=== PATIENT | male | born 1980 | race African-American/Black ===

== ENCOUNTER 2022-11-15 22:30 | Inpatient (IN) | payer MEDICAID ==
[~2022-11-15] VITALS: Ht 172.7 cm; Wt 73.1 kg
[2022-11-15] MEDS ORDERED: CALCIUM GLUCONATE 1,000 MG in DEXT 5% WATER 100 ML IV ONE (22:45)
[2022-11-15] MEDS ORDERED: CALCIUM GLUCONATE 1GM PREMIX 50 ML IV NR (23:00)
[2022-11-15 23:30] LABS: BASOPHILS % 0.5 % (0.0-2.0); DIFFERENTIAL COMMENT 0; EOSINOPHILS % 1.9 % (0.0-5.0); LYMPHOCYTES % 8.8 % (20.0-50.0); MEAN CORPUSCULAR HEMOGLOBIN 29.3 pg (28.0-32.0); MEAN CORPUSCULAR HGB CONC 31.2 g/dL (31.0-37.0); MEAN CORPUSCULAR VOLUME 94.2 fL (80.0-94.0); MEAN PLATELET VOLUME 7.3 fl (7.4-10.4); MONOCYTES % 6.4 % (2.0-8.0); NEUTROPHILS % 82.4 % (40.0-76.0); PLATELET 129 x1000/uL (130-400); RED BLOOD CELL COUNT 0.81 mill/uL (4.7-6.1); RED CELL DISTRIBUTION WIDTH 17.5 % (11.6-14.6); WHITE BLOOD COUNT 5.2 x1000/uL (4.5-11.0)
[2022-11-15 23:38] LABS: CHLORIDE 129 mEq/L (98-107); INDEX HEMOLYSI 1 (1-3); INDEX ICTERIC 1 (1-4); INDEX LIPEMIC 1 (1-3); POTASSIUM 3.2 mEq/L (3.5-5.1); SODIUM 151 mEq/L (136-145)
[2022-11-15 23:50] LABS: ALANINE AMINOTRANSFERASE < 6 IU/L (13-61); ALBUMIN 1.4 g/dL (3.4-5.0); ASPARTATE AMINOTRANSFERASE 8 IU/L (15-37); BILIRUBIN TOTAL 0.1 mg/dL (0.1-1.0); CARBON DIOXIDE 13 mEq/L (21-32); NT PRO B-TYPE NATRIURETIC PEP 13365 pg/mL (5-125); PROTEIN TOTAL 3.1 g/dL (6.0-8.3); TROPONIN I HIGH SENSITIVITY 25 ng/L (<78); UREA NITROGEN BLOOD 28 mg/dL (7-21)
[2022-11-16] VITALS (23 sets, daily range): BP systolic 162–210; BP diastolic 85–133; PULSE 80–110; RESP 16–36; TEMP 97.3–99.7; O2SAT 99
[2022-11-16 00:03] LABS: HEMATOCRIT. 7.7 % (42.0-52.0); HEMOGLOBIN. 2.4 g/dL (14.0-18.0)
[2022-11-16 00:58] LABS: CALCIUM <5.0 mg/dL mg/dL (8.5-10.1); CREATININE 8.8 mg/dL (0.6-1.3); GLUCOSE 45 mg/dL (70-105)
[2022-11-16] MEDS ORDERED: DEXTROSE 50% WATER 50ML SYRINGE IV ONE ×2 (01:00→02:30)
[2022-11-16 01:05] LABS: HEMATOCRIT 22.1 % (42.0-52.0)
[2022-11-16 01:11] LABS: HEMOGLOBIN 6.8 g/dL (14.0-18.0)
[2022-11-16] MEDS ORDERED: DEXTROSE 50% WATER 50ML SYRINGE IV NR ×2 (01:30→03:30)
[2022-11-16 01:40] LABS: INR 0.9
[2022-11-16 01:44] LABS: CHLORIDE 98 mEq/L (98-107); INDEX HEMOLYSI 1 (1-3); INDEX ICTERIC 1 (1-4); INDEX LIPEMIC 1 (1-3); SODIUM 135 mEq/L (136-145)
[2022-11-16 01:56] LABS: ALANINE AMINOTRANSFERASE 12 IU/L (13-61); ALBUMIN 3.8 g/dL (3.4-5.0); ASPARTATE AMINOTRANSFERASE 20 IU/L (15-37); BILIRUBIN TOTAL 0.5 mg/dL (0.1-1.0); CARBON DIOXIDE 25 mEq/L (21-32); GLUCOSE 95 mg/dL (70-105); PROTEIN TOTAL 8.5 g/dL (6.0-8.3); TROPONIN I HIGH SENSITIVITY 52 ng/L (<78); UREA NITROGEN BLOOD 60 mg/dL (7-21)
[2022-11-16 02:01] LABS: CREATININE 19.8 mg/dL (0.6-1.3); POTASSIUM 7.1 mEq/L (3.5-5.1)
[2022-11-16] MEDS ORDERED: ALBUTEROL (0.083%) 2.5MG/3ML NEB HHN SCH (02:30)
[2022-11-16] MEDS ORDERED: INSULIN REGULAR (HUMULIN R) 300UNITS/3ML VIAL IV ONE (02:30)
[2022-11-16] MEDS ORDERED: SODIUM BICARBONATE 8.4% 1 MEQ/ML 50ML SYR IV ONE (02:30)
[2022-11-16] MEDS ORDERED: SODIUM BICARBONATE 8.4% 1 MEQ/ML 50ML SYR IV NR (03:15)
[2022-11-16] MEDS ORDERED: ALBUTEROL (0.083%) 2.5MG/3ML NEB ONE (05:50)
[2022-11-16] MEDS: ALBUTEROL (0.083%) 2.5MG/3ML NEB HHN SCH ×2 (05:52→06:28)
[2022-11-16] MEDS ORDERED: ONDANSETRON HCL 4MG/2ML INJ IV PRN (09:45)
[2022-11-16] MEDS: NIFEDIPINE XL 60MG TAB PO SCH ×2 (10:00→17:03)
[2022-11-16] MEDS ORDERED: PANTOPRAZOLE SODIUM 40 MG/VIAL IV SCH (11:00)
[2022-11-16 15:05] LABS: HEPATITIS B SURFACE ANTIGEN NEGATIVE
[2022-11-16 15:32] LABS: HEPATITIS C VIR.AB 0.11 INDEXVAL (0.00-0.80)
[2022-11-16 15:33] LABS: HEPATITIS B CORE AB IGM NEGATIVE
[2022-11-16 15:34] LABS: HEPATITIS A AB IGM NEGATIVE (NEGATIVE)
[2022-11-16] MEDS ORDERED: HYDRALAZINE HCL 100MG TABLET PO NR (16:00)
[2022-11-16 16:13] LABS: BG BASE EXCESS -1.9 mmol/L (-2.0-2.0); BG CARBOXYHEMOGLOBIN 0.5 % (0.5-1.5); BG HCO3 ACT 22.9 mmol/L (22.0-26.0); BG METHEMOGLOBIN 0.2 % (0.0-1.5); BG OXYHEMOGLOBIN 96.3 % (94.0-97.0); BG PCO2 38.8 mmHg (35.0-45.0); BG PH 7.388 (7.350-7.450); BG PO2 91.3 mmHg (75.0-100.0); BG SAMPLE SITE RIGHT RADIAL; BG TOTAL HEMOGLOBIN 7.9 g/dL (12.0-18.0); BG VENT MODE NASAL CANNULA
[2022-11-16] MEDS: HYDRALAZINE HCL 100MG TABLET PO SCH (20:48)
[2022-11-16] MEDS: ACETAMINOPHEN 325MG TABLET PO PRN (20:50)
[2022-11-16] MEDS ORDERED: EPOETIN ALFA 4000UNITS/ML VIAL SUBCUT NR (21:00)
[2022-11-16] MEDS: IPRATROPIUM/ALBUTEROL 0.5-3(2.5)MG/3ML NEB HHN SCH (21:28)
[2022-11-16] MEDS: PANTOPRAZOLE SODIUM 40 MG/VIAL IV SCH (22:35)
[2022-11-16 22:43] LABS: POTASSIUM 6.3 mEq/L (3.5-5.1)
[2022-11-16 22:44] LABS: FOLIC ACID (FOLATE) SERUM 18.8 ng/mL (>5.38)
[2022-11-16] MEDS ORDERED: SODIUM POLYSTYRENE SULFONATE 15 G/60 ML BOT PO NR (23:30)
[2022-11-17] VITALS (26 sets, daily range): BP systolic 133–189; BP diastolic 75–120; PULSE 92–110; RESP 12–29; TEMP 97.4–99.1; O2SAT 98–99
[2022-11-17] MEDS: IPRATROPIUM/ALBUTEROL 0.5-3(2.5)MG/3ML NEB HHN SCH ×4 (01:06→19:51)
[2022-11-17 01:34] LABS: HEMATOCRIT 21.5 % (42.0-52.0); HEMOGLOBIN 7.2 g/dL (14.0-18.0)
[2022-11-17] MEDS ORDERED: DIPH50CA41 PO (03:53)
[2022-11-17] MEDS ORDERED: CETI10TA11 MT (03:53)
[2022-11-17] MEDS ORDERED: PREG50CA MT (03:53)
[2022-11-17] MEDS ORDERED: FOLI0.8T23 MT (03:53)
[2022-11-17] MEDS ORDERED: MINO10TA MT (03:53)
[2022-11-17] MEDS ORDERED: FURO80TA3 MT (03:53)
[2022-11-17] MEDS ORDERED: HYDR-4135 PO (03:53)
[2022-11-17] MEDS ORDERED: CARV12.545 PO (03:53)
[2022-11-17] MEDS ORDERED: LOSA50TA41 MT (03:53)
[2022-11-17] MEDS: CLONIDINE 0.1MG TABLET PO PRN ×2 (05:36→13:00)
[2022-11-17] MEDS: ACETAMINOPHEN 325MG TABLET PO PRN ×2 (05:36→12:49)
[2022-11-17 06:12] LABS: BASOPHILS % 0.3 % (0.0-2.0); EOSINOPHILS % 0.3 % (0.0-5.0); HEMATOCRIT. 22.3 % (42.0-52.0); HEMOGLOBIN. 7.4 g/dL (14.0-18.0); LYMPHOCYTES % 7.8 % (20.0-50.0); MEAN CORPUSCULAR HEMOGLOBIN 28.8 pg (28.0-32.0); MEAN CORPUSCULAR HGB CONC 33.1 g/dL (31.0-37.0); MEAN CORPUSCULAR VOLUME 87.1 fL (80.0-94.0); MEAN PLATELET VOLUME 8.1 fl (7.4-10.4); MONOCYTES % 7.5 % (2.0-8.0); NEUTROPHILS % 84.1 % (40.0-76.0); PLATELET 269 x1000/uL (130-400); RED BLOOD CELL COUNT 2.56 mill/uL (4.7-6.1); RED CELL DISTRIBUTION WIDTH 18.4 % (11.6-14.6); WHITE BLOOD COUNT 14.9 x1000/uL (4.5-11.0)
[2022-11-17 07:38] LABS: POTASSIUM 5.9 mEq/L (3.5-5.1)
[2022-11-17 07:44] LABS: CALCIUM 9.3 mg/dL (8.5-10.1)
[2022-11-17 07:50] LABS: CREATININE 14.4 mg/dL (0.6-1.3)
[2022-11-17] MEDS: NIFEDIPINE XL 60MG TAB PO SCH ×2 (08:54→20:39)
[2022-11-17] MEDS: HYDRALAZINE HCL 100MG TABLET PO SCH ×2 (08:54→17:46)
[2022-11-17] MEDS: PANTOPRAZOLE SODIUM 40 MG/VIAL IV SCH ×2 (13:00→20:38)
[2022-11-17 13:14] LABS: HEMOGLOBIN 7.2 g/dL (14.0-18.0)
[2022-11-17] MEDS ORDERED: CEFTRIAXONE 1GM PREMIX 50 ML IV SCH (15:45)
[2022-11-17] MEDS: CEFTRIAXONE 1,000 MG in DEXTROSE 5% WATER 50 ML IV SCH (20:38)
[2022-11-18] VITALS (17 sets, daily range): BP systolic 138–172; BP diastolic 82–126; PULSE 98–119; RESP 9–31; TEMP 97.8–98.6; O2SAT 96–100
[2022-11-18] MEDS: HYDRALAZINE HCL 100MG TABLET PO SCH ×3 (01:00→17:49)
[2022-11-18] MEDS: IPRATROPIUM/ALBUTEROL 0.5-3(2.5)MG/3ML NEB HHN SCH ×4 (01:54→21:36)
[2022-11-18] MEDS: CLONIDINE 0.1MG TABLET PO PRN (06:37)
[2022-11-18 06:53] LABS: BASOPHILS % 0.2 % (0.0-2.0); EOSINOPHILS % 1.5 % (0.0-5.0); HEMATOCRIT. 23.3 % (42.0-52.0); HEMOGLOBIN. 7.7 g/dL (14.0-18.0); LYMPHOCYTES % 8.4 % (20.0-50.0); MEAN CORPUSCULAR HEMOGLOBIN 28.2 pg (28.0-32.0); MEAN CORPUSCULAR HGB CONC 33.1 g/dL (31.0-37.0); MEAN CORPUSCULAR VOLUME 85.2 fL (80.0-94.0); MONOCYTES % 7.4 % (2.0-8.0); NEUTROPHILS % 82.5 % (40.0-76.0); PLATELET 273 x1000/uL (130-400); RED BLOOD CELL COUNT 2.74 mill/uL (4.7-6.1); RED CELL DISTRIBUTION WIDTH 16.7 % (11.6-14.6); WHITE BLOOD COUNT 11.7 x1000/uL (4.5-11.0)
[2022-11-18 07:27] LABS: POTASSIUM 4.7 mEq/L (3.5-5.1)
[2022-11-18 07:35] LABS: CALCIUM 9.1 mg/dL (8.5-10.1)
[2022-11-18 07:39] LABS: CREATININE 11.2 mg/dL (0.6-1.3)
[2022-11-18] MEDS: PANTOPRAZOLE SODIUM 40 MG/VIAL IV SCH ×2 (09:36→21:26)
[2022-11-18] MEDS: NIFEDIPINE XL 60MG TAB PO SCH ×2 (09:37→21:27)
[2022-11-18] MEDS: CEFTRIAXONE 1,000 MG in DEXTROSE 5% WATER 50 ML IV SCH (17:49)
[2022-11-19] VITALS (18 sets, daily range): BP systolic 118–198; BP diastolic 83–130; PULSE 90–120; RESP 16–27; TEMP 97.4–99; O2SAT 99
[2022-11-19] MEDS: HYDRALAZINE HCL 100MG TABLET PO SCH ×3 (01:00→16:49)
[2022-11-19] MEDS: IPRATROPIUM/ALBUTEROL 0.5-3(2.5)MG/3ML NEB HHN SCH ×2 (02:04→20:53)
[2022-11-19] MEDS: CLONIDINE 0.1MG TABLET PO PRN (04:18)
[2022-11-19 05:50] LABS: PROTHROMBIN TIME 10.3 sec (9.6-11.0)
[2022-11-19 06:23] LABS: POTASSIUM 4.7 mEq/L (3.5-5.1)
[2022-11-19 06:38] LABS: BASOPHILS % 0.6 % (0.0-2.0); EOSINOPHILS % 2.7 % (0.0-5.0); HEMOGLOBIN. 7.6 g/dL (14.0-18.0); LYMPHOCYTES % 7.2 % (20.0-50.0); MEAN CORPUSCULAR HEMOGLOBIN 29.7 pg (28.0-32.0); MEAN CORPUSCULAR HGB CONC 34.5 g/dL (31.0-37.0); MEAN CORPUSCULAR VOLUME 86.1 fL (80.0-94.0); MEAN PLATELET VOLUME 7.9 fl (7.4-10.4); MONOCYTES % 7.6 % (2.0-8.0); NEUTROPHILS % 81.9 % (40.0-76.0); PLATELET 279 x1000/uL (130-400); RED BLOOD CELL COUNT 2.56 mill/uL (4.7-6.1); RED CELL DISTRIBUTION WIDTH 16.8 % (11.6-14.6); WHITE BLOOD COUNT 8.9 x1000/uL (4.5-11.0)
[2022-11-19 08:00] LABS: CALCIUM 9.4 mg/dL (8.5-10.1)
[2022-11-19] MEDS: NIFEDIPINE XL 60MG TAB PO SCH ×2 (09:00→20:44)
[2022-11-19] MEDS: PANTOPRAZOLE SODIUM 40 MG/VIAL IV SCH (09:33)
[2022-11-19] MEDS ORDERED: METOPROLOL TARTRATE 25MG TABLET PO NR (12:30)
[2022-11-19] MEDS ORDERED: SIMETHICONE 40 MG/0.6 ML 15ML ONE (13:01)
[2022-11-19] MEDS ORDERED: MIDAZOLAM HCL 5 MG/5 ML VIAL ONE (13:25)
[2022-11-19] MEDS ORDERED: LIDOCAINE HCL 1% 10 MG/ML 10ML VIAL ONE (13:25)
[2022-11-19] MEDS ORDERED: PROPOFOL 200MG/20ML VIAL IV ONE ×2 (13:25→13:49)
[2022-11-19] MEDS: CEFTRIAXONE 1,000 MG in DEXTROSE 5% WATER 50 ML IV SCH (16:49)
[2022-11-19] MEDS: DOCUSATE SODIUM 250MG CAPSULE PO SCH (16:49)
[2022-11-19] MEDS: METOPROLOL TARTRATE 25MG TABLET PO SCH (20:43)
[2022-11-20] VITALS (8 sets, daily range): BP systolic 148–156; BP diastolic 74–99; PULSE 92–104; RESP 13–28; TEMP 98.3–99.3; O2SAT 95
[2022-11-20] MEDS: PANTOPRAZOLE SODIUM 40 MG/VIAL IV SCH ×2 (00:31→08:27)
[2022-11-20] MEDS: HYDRALAZINE HCL 100MG TABLET PO SCH ×2 (00:31→08:27)
[2022-11-20] MEDS: IPRATROPIUM/ALBUTEROL 0.5-3(2.5)MG/3ML NEB HHN SCH (02:36)
[2022-11-20] MEDS: NIFEDIPINE XL 60MG TAB PO SCH (08:27)
[2022-11-20] MEDS: DOCUSATE SODIUM 250MG CAPSULE PO SCH (08:27)
[2022-11-20] MEDS: METOPROLOL TARTRATE 25MG TABLET PO SCH (08:28)
== END 2022-11-20 09:40 | disposition home or self-care (01) | DRG 139 ==
LOC: ER 22:30 → MICUSO 11-16 02:26 → 5EST 11-16 08:17
PROVIDERS: ADMIT Internal Medicine; ATTEND Internal Medicine
PROC: 5A09357 Assistance with Respiratory Ventilation, Less than 24 Consecutive Hours, Continuous Positive Airway Pressure (ICD-10-PCS; principal; 2022-11-16)
PROC: 5A1D70Z Performance of Urinary Filtration, Intermittent, Less than 6 Hours Per Day (ICD-10-PCS; 2022-11-16)
PROC: 30233N1 Transfusion of Nonautologous Red Blood Cells into Peripheral Vein, Percutaneous Approach (ICD-10-PCS; 2022-11-17)
PROC: 5A1D70Z Performance of Urinary Filtration, Intermittent, Less than 6 Hours Per Day (ICD-10-PCS; 2022-11-17)
PROC: 5A09357 Assistance with Respiratory Ventilation, Less than 24 Consecutive Hours, Continuous Positive Airway Pressure (ICD-10-PCS; 2022-11-17)
PROC: 0DB78ZX Excision of Stomach, Pylorus, Via Natural or Artificial Opening Endoscopic, Diagnostic (ICD-10-PCS; 2022-11-19)
PROC: 5A1D70Z Performance of Urinary Filtration, Intermittent, Less than 6 Hours Per Day (ICD-10-PCS; 2022-11-19)
DX: J18.9 Pneumonia, unspecified organism (principal); J96.01 Acute respiratory failure with hypoxia; I13.2 Hypertensive heart and chronic kidney disease with heart failure and with stage 5 chronic kidney disease, or end stage renal disease; D69.6 Thrombocytopenia, unspecified; K29.01 Acute gastritis with bleeding; E87.1 Hypo-osmolality and hyponatremia; D63.1 Anemia in chronic kidney disease; N18.6 End stage renal disease; I50.40 Unspecified combined systolic (congestive) and diastolic (congestive) heart failure; D72.829 Elevated white blood cell count, unspecified; E87.5 Hyperkalemia; Z20.822 Contact with and (suspected) exposure to COVID-19; Z99.2 Dependence on renal dialysis
CPT/HCPCS: 36415; 36600; 71045; 80048; 80053; 82270; 82375; 82607; 82728; 82746; 82805; 82962; 83540; 83550; 83880; 84132; 84484; 85014; 85018; 85025; 85044; 86705; 86709; 86803; 86850; 86900; 86920; 87340; 87426; 88305; 88312; 88313; 90935; 93306; 94640; 94660; 99291; C9113; J0610; J0696; J0885; J1815; J2250; J2405; J2704; J3490; J7060; P9016

== ENCOUNTER 2025-02-03 04:35 | Emergency (ER) | payer MEDICAID ==
[~2025-02-03] VITALS: Ht 177.8 cm; Wt 80.0 kg
[~2025-02-03 04:35] MED LIST: CARV12.545 PO; CETI10TA11 MT; DIPH50CA41 PO; FOLI0.8T23 MT; FURO80TA3 MT; HYDR50TA40 PO; LOSA50TA41 MT; MINO10TA MT; PREG50CA MT
[2025-02-03 04:38] VITALS: O2SAT 97
[2025-02-03 05:18] LABS: BASOPHILS % 0.2 % (0.0-2.0); EOSINOPHILS % 3.5 % (0.0-5.0); HEMATOCRIT. 31.2 % (42.0-52.0); HEMOGLOBIN. 10.1 g/dL (14.0-18.0); LYMPHOCYTES % 31.1 % (20.0-50.0); MEAN PLATELET VOLUME 8.7 fl (7.4-10.4); MONOCYTES % 7.6 % (2.0-8.0); NEUTROPHILS % 57.6 % (40.0-76.0); PLATELET 262 x1000/uL (130-400); RED BLOOD CELL COUNT 3.61 mill/uL (4.7-6.1); RED CELL DISTRIBUTION WIDTH 15.4 % (11.6-14.6)
[2025-02-03 05:36] LABS: UREA NITROGEN BLOOD 45.0 mg/dL (9-23)
[2025-02-03 05:37] LABS: INR 1.0
[2025-02-03 05:38] LABS: TROPONIN I HIGH SENSITIVITY 17 ng/L (3.0-53)
[2025-02-03 05:39] LABS: CREATININE 12.9 mg/dL (0.6-1.3)
[2025-02-03 06:06] LABS: ASPARTATE AMINOTRANSFERASE 15 IU/L (<34); BILIRUBIN DIRECT < 0.1 mg/dL (<=3.0); BILIRUBIN TOTAL 0.3 mg/dL (0.1-1.0); PROTEIN TOTAL 7.2 g/dL (6.0-8.3)
[2025-02-03 09:36] VITALS: BP 125/76; PULSE 68; RESP 14; TEMP 36.7; O2SAT 98
== END 2025-02-03 09:37 | disposition left against medical advice (07) ==
LOC: ER 04:35 → EDBEDREQTM 08:41 → EDBEDREQ 08:41 → CANBEDREQ 09:36 → ER 09:37
DX: R07.89 Other chest pain (principal); I13.2 Hypertensive heart and chronic kidney disease with heart failure and with stage 5 chronic kidney disease, or end stage renal disease; N18.6 End stage renal disease; Z99.2 Dependence on renal dialysis; F12.90 Cannabis use, unspecified, uncomplicated; Z79.899 Other long term (current) drug therapy
CPT/HCPCS: 80076; 80048; 83880; 85025; 85610; 85730; 84484; 36415; 71045; 99285; Z7610 ×2